=== PATIENT | female | born 1965 | race Two or more races ===

== ENCOUNTER 2021-03-04 22:58 | Emergency (ER) | payer OTHER ==
[~2021-03-04] VITALS: Ht 160 cm; Wt 59.1 kg
[~2021-03-04 22:58] MED LIST: CYCL10B PO; ETOD600T PO; TRAM50TA4 PO
[2021-03-04 23:47] VITALS: BP 135/77
[2021-03-05] MEDS ORDERED: AMOX TR/POT CLAV 875 MG/125 MG TABLET PO ONE (00:15)
[2021-03-05] MEDS ORDERED: RABIES VACCINE (PCEC)/PF 2.5 UNITS/ML SYRINGE IM. ONE (00:15)
[2021-03-05] MEDS ORDERED: RABIES IMMUNE GLOBULIN/PF 300 UNITS/ML 5 ML VIAL IM. ONE (00:15)
[2021-03-05] MEDS ORDERED: PERTUSS(ACELL),DIPH,TET VAC/PF 0.5 ML SYRINGE IM. ONE (00:15)
== END 2021-03-05 01:29 | disposition home or self-care (01) ==
LOC: EMS 23:01
DX: S41.132A Puncture wound without foreign body of left upper arm, initial encounter (principal); I10 Essential (primary) hypertension; Z90.710 Acquired absence of both cervix and uterus; W54.0XXA Bitten by dog, initial encounter; Y93.89 Activity, other specified; Y92.89 Other specified places as the place of occurrence of the external cause; Y99.8 Other external cause status
CPT/HCPCS: 90375; 90471; 90472; 90675; 90715; 96372; 99284

== ENCOUNTER 2021-03-08 10:17 | Emergency (ER) | payer OTHER ==
[~2021-03-08] VITALS: Ht 160 cm; Wt 59.1 kg
[2021-03-08 10:33] VITALS: BP 112/68
[2021-03-08] MEDS ORDERED: RABIES VACCINE (PCEC)/PF 2.5 UNITS/ML SYRINGE IM. ONE (12:00)
== END 2021-03-08 12:44 | disposition home or self-care (01) ==
LOC: EMS 10:17
DX: S60.812D Abrasion of left wrist, subsequent encounter (principal); I10 Essential (primary) hypertension; Z23 Encounter for immunization; Z90.710 Acquired absence of both cervix and uterus; X58.XXXD Exposure to other specified factors, subsequent encounter
CPT/HCPCS: 90471; 90675; 99281

== ENCOUNTER 2021-03-12 19:34 | Emergency (ER) | payer OTHER ==
[~2021-03-12] VITALS: Ht 160 cm; Wt 59.1 kg
[2021-03-12 20:10] VITALS: BP 125/68
[2021-03-12] MEDS ORDERED: RABIES VACCINE (PCEC)/PF 2.5 UNITS/ML SYRINGE IM. ONE (21:15)
== END 2021-03-12 21:43 | disposition home or self-care (01) ==
LOC: EMS 19:39
DX: Z23 Encounter for immunization (principal)
CPT/HCPCS: 90471; 90675; 99281

== ENCOUNTER 2021-03-19 20:34 | Emergency (ER) | payer OTHER ==
[~2021-03-19] VITALS: Ht 160 cm; Wt 54.5 kg
[2021-03-19] MEDS ORDERED: RABIES VACCINE (PCEC)/PF 2.5 UNITS/ML SYRINGE IM. ONE (21:45)
[2021-03-19 22:00] VITALS: BP 121/64
== END 2021-03-19 22:05 | disposition home or self-care (01) ==
LOC: EMS 20:36
DX: S61.552D Open bite of left wrist, subsequent encounter (principal); I10 Essential (primary) hypertension; Z23 Encounter for immunization; Z90.710 Acquired absence of both cervix and uterus; X58.XXXD Exposure to other specified factors, subsequent encounter
CPT/HCPCS: 90471; 90675; 99281

== ENCOUNTER 2023-08-25 17:30 | Emergency (ER) | payer OTHER ==
[~2023-08-25] VITALS: Ht 160 cm; Wt 63.6 kg
[~2023-08-25 17:30] MED LIST changes: +CYCL-397 PO; -CYCL10B PO; +TRAM-559 PO; -TRAM50TA4 PO
[2023-08-25 17:35] VITALS: TEMP 98.6
[2023-08-25 17:48] VITALS: BP 155/108; PULSE 96; RESP 18
[2023-08-25] MEDS: KETOROLAC TROMETHAMINE 30 MG/ML VIAL IM ONE (18:37)
[2023-08-25] MEDS: PERTUSS(ACELL),DIPH,TET/PF 0.5 ML SYRINGE [ADULT] IM. ONE (18:38)
[2023-08-25] MEDS: LIDOCAINE 5% TRANSDERMAL PATCH TD ONE (18:39)
[2023-08-25] MEDS: RABIES IMMUNE GLOBULIN/PF 150 UNIT/ML 10 ML VIAL IM. ONE (19:19)
[2023-08-25] MEDS: RABIES VACCINE, HUMAN DIPLOID/PF 2.5 UNITS/ML VIAL IM. ONE (19:20)
[2023-08-25] MEDS ORDERED: AMOX1TAB16 PO (20:23)
[2023-08-25] MEDS: AMOX TR/POT CLAV 875 MG/125 MG TABLET PO ONE (20:40)
[2023-08-29] MEDS ORDERED: HYDR-4808 PO (16:11)
== END 2023-08-25 20:49 | disposition home or self-care (01) ==
LOC: EMS 17:32
DX: S61.452A Open bite of left hand, initial encounter (principal); M62.838 Other muscle spasm; I10 Essential (primary) hypertension; E05.90 Thyrotoxicosis, unspecified without thyrotoxic crisis or storm; Z90.710 Acquired absence of both cervix and uterus; W54.0XXA Bitten by dog, initial encounter; Y93.89 Activity, other specified; Y92.89 Other specified places as the place of occurrence of the external cause; Y99.8 Other external cause status
CPT/HCPCS: 99284; 90675; 90375; 72040; 90715; 90471; 90472; 96372; J1885

== ENCOUNTER 2023-08-27 19:49 | Emergency (ER) | payer OTHER ==
[~2023-08-27] VITALS: Ht 160 cm; Wt 63.6 kg
[~2023-08-27 19:49] MED LIST changes: +AMOX1TAB16 PO
[2023-08-27 21:51] VITALS: BP 148/82; PULSE 85; RESP 18; TEMP 98
[2023-08-27] MEDS: KETOROLAC TROMETHAMINE 30 MG/ML VIAL IM ONE (22:56)
[2023-08-27] MEDS: RABIES VACCINE, HUMAN DIPLOID/PF 2.5 UNITS/ML VIAL IM. ONE (22:58)
[2023-08-29] MEDS ORDERED: HYDR-4808 PO (16:11)
== END 2023-08-27 23:19 | disposition home or self-care (01) ==
LOC: EMS 19:50
DX: S61.452D Open bite of left hand, subsequent encounter (principal); S61.451D Open bite of right hand, subsequent encounter; I10 Essential (primary) hypertension; E05.90 Thyrotoxicosis, unspecified without thyrotoxic crisis or storm; G89.29 Other chronic pain; Z23 Encounter for immunization; Z90.710 Acquired absence of both cervix and uterus; W54.0XXD Bitten by dog, subsequent encounter
CPT/HCPCS: 90675; 99283; 90471; 96372; J1885; 99284

== ENCOUNTER 2024-09-24 12:10 | Emergency (ER) | payer OTHER ==
[~2024-09-24] VITALS: Ht 154.9 cm; Wt 61.4 kg
[~2024-09-24 12:10] MED LIST changes: +AMOX-457 PO; -AMOX1TAB16 PO; +HYDR-4808 PO; -TRAM-559 PO; +TRAM50TA5 PO
[2024-09-24] MEDS ORDERED: PARO10TA71 PO (12:15)
[2024-09-24] MEDS ORDERED: METO-408 PO (12:15)
[2024-09-24] MEDS ORDERED: ATOR40TA71 PO (12:15)
[2024-09-24] MEDS ORDERED: ROSU20TA98 PO (12:15)
[2024-09-24 12:17] VITALS: TEMP 98.1
[2024-09-24] MEDS: PERTUSS(ACELL),DIPH,TET/PF 0.5 ML SYRINGE [ADULT] IM. ONE (15:23)
[2024-09-24] MEDS: AMOX TR/POT CLAV 875 MG/125 MG TABLET PO ONE (15:23)
[2024-09-24] MEDS: RABIES VACCINE, HUMAN DIPLOID/PF 2.5 UNITS/ML VIAL IM. ONE (16:28)
[2024-09-24 16:55] VITALS: BP 118/98; PULSE 72; RESP 16; O2SAT 100
[2024-09-24] MEDS ORDERED: AMOX-457 PO (17:04)
== END 2024-09-24 17:29 | disposition home or self-care (01) ==
LOC: EMS 12:10
DX: S60.511A Abrasion of right hand, initial encounter (principal); S60.512A Abrasion of left hand, initial encounter; Z20.3 Contact with and (suspected) exposure to rabies; Z23 Encounter for immunization; I10 Essential (primary) hypertension; F41.9 Anxiety disorder, unspecified; Z90.710 Acquired absence of both cervix and uterus; Z79.899 Other long term (current) drug therapy; W55.03XA Scratched by cat, initial encounter; Y93.89 Activity, other specified; Y92.89 Other specified places as the place of occurrence of the external cause; Y99.8 Other external cause status
CPT/HCPCS: 90471; 90472; 90675; 90715; 99284

== ENCOUNTER 2024-09-27 14:12 | Emergency (ER) | payer OTHER ==
[~2024-09-27] VITALS: Ht 152.4 cm; Wt 61.4 kg
[~2024-09-27 14:12] MED LIST changes: +ATOR40TA71 PO; -CYCL-397 PO; -ETOD600T PO; -HYDR-4808 PO; +METO-408 PO; +PARO10TA71 PO; +ROSU20TA98 PO; -TRAM50TA5 PO
[2024-09-27 14:40] VITALS: TEMP 98.2
[2024-09-27] MEDS: RABIES VACCINE, HUMAN DIPLOID/PF 2.5 UNITS/ML VIAL IM. ONE (16:32)
[2024-09-27 16:39] VITALS: BP 112/63; PULSE 76; RESP 18; O2SAT 99
== END 2024-09-27 16:44 | disposition home or self-care (01) ==
LOC: EMS 14:12
DX: Z20.3 Contact with and (suspected) exposure to rabies (principal); Z23 Encounter for immunization; I10 Essential (primary) hypertension; E03.9 Hypothyroidism, unspecified; F41.9 Anxiety disorder, unspecified; Z90.710 Acquired absence of both cervix and uterus; Z79.899 Other long term (current) drug therapy
CPT/HCPCS: 90471; 90675; 99281